=== PATIENT | female | born 1985 | race Caucasian/White ===

== ENCOUNTER → 2017-06-18 | Outpatient (CLI) | payer BC ==
--- NOTE | ~2017-06-18 | MR104 ---
[facility] A Service [facility] RADIOLOGY TEXT RESULTS PATIENT: MARY GREGORY LOCATION: [facility] : 83 UNIT #: [id number] AGE: [address]: DENNYS HANKINS SEX: F ORDER DR: [id number] [address] [address] [id number] MR#: [id number] Acc #: [id number] NAME: MARY GREGORY : 1985 SEX: F STUDY DATE/TIME: 06/18/2017 16:03 UNIT: [facility] ROOM: STUDY DESCRIPTION: MR Knee Wo Contrast Rt Attending Physician: Dennys Hankins Aprn Referring Physician: Dennys Hankins Aprn Ordering Physician: Dennys Hankins Aprn Primary Care Physician: Dieter Caballero M.D. [facility] REPORT This report is preliminary unless electronic signature is present. EXAM Right knee MRI without contrast 06/18/2017 HISTORY 32-year-old female with right knee pain status post twisting injury while running 2 weeks ago. No prior right knee surgery. COMPARISON Right knee x-rays 06/10/2017. TECHNIQUE Routine unenhanced multiplanar, multisequence high-field MR imaging of the right knee was performed. FINDINGS The menisci are intact. Cruciate and collateral ligaments are intact. Extensor mechanism is intact. No joint effusion. No significant popliteal cyst. Patellofemoral articular cartilage is intact. Medial and lateral compartment articular cartilage intact. Bone marrow signal is within normal limits. Visualized musculature is unremarkable. IMPRESSION Unremarkable right knee MRI. No evidence of a meniscus tear, acute ligament injury, or significant articular cartilage loss. No acute bony abnormality. Dictated by... [facility] A Service [facility] RADIOLOGY TEXT RESULTS PATIENT: MARY GREGORY LOCATION: [facility] : 83 UNIT #: [id number] AGE: [address]: DENNYS HANKINS SEX: F ORDER DR: Marco K. Low, M.D. THIS IS AN ELECTRONICALLY VERIFIED REPORT Marco Low M.D. at 06/19/2017 4:23 PM KAROLINE/job TD: 06/19/2017 11:19 JOB #: [id number] MRI [facility]ENTER REPORT Page 1 of 1 COPY
== END | disposition home or self-care (01) ==
LOC: CMRI 15:33
DX: M25.561 Pain in right knee (principal)
CPT/HCPCS: 73721